=== PATIENT | male | born 1965 | race American Indian/Alaskan Native ===

== ENCOUNTER 2020-03-11 08:56 | Emergency (ER) | payer OTHER ==
[~2020-03-11] VITALS: Ht 165.1 cm; Wt 88.0 kg
[2020-03-11 10:00] LABS: BASOPHILS # (AUTO) 0.1 X10'3 (0-0.2); BASOPHILS % (AUTO) 1.1 % (0-1); EOSINOPHILS # (AUTO) 0.3 X10'3 (0-0.9); EOSINOPHILS % (AUTO) 3.8 % (0-6); HEMATOCRIT 47.8 % (42.0-52.0); HEMOGLOBIN 16.1 g/dl (14.0-17.9); LYMPHOCYTES # (AUTO) 2.5 X10'3 (1.1-4.8); LYMPHOCYTES % (AUTO) 37.5 % (21-51); MEAN CORPUSCULAR HGB CONC 33.6 g/dL (33.0-36.5); MEAN CORPUSCULAR VOLUME 89.1 FL (78-98); MEAN PLATELET VOLUME 7.8 FL (7.4-10.4); MONOCYTES # (AUTO) 0.4 X10'3 (0-0.9); NEUTROPHILS # (AUTO) 3.5 X10'3 (1.8-7.7); NEUTROPHILS % (AUTO) 51.6 % (42-75); PLATELET COUNT 308 X10'3 (140-440); RED BLOOD COUNT 5.37 X10'6 (4.70-6.10); RED CELL DISTRIBUTION WIDTH 13.6 % (11.5-14.5); WHITE BLOOD COUNT 6.7 X10'3 (4.5-11.0)
[2020-03-11 10:08] LABS: ALANINE AMINOTRANSFERASE 43 U/L (12-78); ALBUMIN 4.2 G/DL (3.4-5.0); ALKALINE PHOSPHATASE 65 IU/L (46-116); ANION GAP 8 (8-16); ASPARTATE AMINO TRANSFERASE 23 U/L (10-37); BILIRUBIN,TOTAL 0.4 MG/DL (0.1-1.0); BLOOD UREA NITROGEN 16 MG/DL (7-18); BUN/CREATININE RATIO 15.1 (5.4-32.0); CALCIUM 9.5 MG/DL (8.5-10.1); CHLORIDE 103 MMOL/L (99-107); CREATININE 1.06 MG/DL (0.60-1.10); GLUCOSE 151 MG/DL (70-104); POTASSIUM 4.1 MMOL/L (3.5-5.1); SODIUM 140 MMOL/L (135-145); TOTAL PROTEIN 8.3 G/DL (6.4-8.2); eGFR 72 ML/MIN
--- NOTE | 2020-03-11 11:17 | NUR ---
PT UP OUT OF BED AND AMBULATED TO THE BATHROOM WITH A STEADY GAIT. PT REPORTS "NO HEST PAIN AT THIS TIME".
[2020-03-11 13:19] VITALS: BP 131/81
== END 2020-03-11 13:33 | disposition home or self-care (01) ==
LOC: ER 08:57
DX: R07.89 Other chest pain (principal); R10.13 Epigastric pain; E78.00 Pure hypercholesterolemia, unspecified; G47.30 Sleep apnea, unspecified
CPT/HCPCS: 36415; 71045; 80053; 83880; 84484; 85025; 93005; 99285

== ENCOUNTER 2020-08-22 10:58 | Day surgery (SDC) | payer OTHER ==
[2020-08-22] VITALS (11 sets, daily range): BP systolic 109–152; BP diastolic 59–97
[~2020-08-22] VITALS: Ht 165.1 cm; Wt 88.8 kg
[2020-08-22] MEDS ORDERED: LORazepam 0.5 MG tablet PO PRN (11:20)
[2020-08-22] MEDS ORDERED: normal saline 1,000 ML IV SCH (11:20)
[2020-08-22] MEDS ORDERED: diphenhydrAMINE 25mg capsule PO PRN (11:20)
[2020-08-22 11:55] LABS: ANION GAP 12 (8-16); BLOOD UREA NITROGEN 14 MG/DL (7-18); BUN/CREATININE RATIO 15.9 (5.4-32.0); CALCIUM 8.9 MG/DL (8.5-10.1); CHLORIDE 104 MMOL/L (99-107); CREATININE 0.88 MG/DL (0.60-1.10); GLUCOSE 91 MG/DL (70-104); SODIUM 140 MMOL/L (135-145); TOTAL CARBON DIOXIDE 24.3 MMOL/L (24-32); eGFR 89 ML/MIN
[2020-08-22 11:57] LABS: BASOPHILS # (AUTO) 0.1 X10'3 (0-0.2); BASOPHILS % (AUTO) 1.5 % (0-1); EOSINOPHILS # (AUTO) 0.2 X10'3 (0-0.9); EOSINOPHILS % (AUTO) 2.8 % (0-6); HEMATOCRIT 43.2 % (42.0-52.0); HEMOGLOBIN 14.5 g/dl (14.0-17.9); LYMPHOCYTES % (AUTO) 35.9 % (21-51); MEAN CORPUSCULAR HEMOGLOBIN 30.1 PG (27.0-31.0); MEAN CORPUSCULAR HGB CONC 33.5 g/dL (33.0-36.5); MEAN CORPUSCULAR VOLUME 89.9 FL (78-98); MEAN PLATELET VOLUME 7.6 FL (7.4-10.4); MONOCYTES # (AUTO) 0.7 X10'3 (0-0.9); MONOCYTES % (AUTO) 8.5 % (2-12); NEUTROPHILS # (AUTO) 4.3 X10'3 (1.8-7.7); NEUTROPHILS % (AUTO) 51.3 % (42-75); PLATELET COUNT 288 X10'3 (140-440); RED CELL DISTRIBUTION WIDTH 14.2 % (11.5-14.5); WHITE BLOOD COUNT 8.4 X10'3 (4.5-11.0)
[2020-08-22 11:59] LABS: PARTIAL THROMBOPLASTIN TIME 29 SECONDS (22-32)
[2020-08-22] MEDS ORDERED: nitroGLYCERIN-Tridil 50MG/D5W 250 ML IV ONE (12:01)
[2020-08-22] MEDS ORDERED: heparin 1,000unit/ml 10ml vial 10 ML ONE (12:02)
[2020-08-22] MEDS ORDERED: fentaNYL/PF 50MCG/1 ML 2ML syringe ONE (12:02)
[2020-08-22] MEDS ORDERED: LIDOcaine 1% (10mg/ml)w/preservative injection 20ml MDV ONE (12:02)
[2020-08-22] MEDS ORDERED: midazolam 1 mg/ML 2ml injection ONE ×2 (12:02→13:23)
[2020-08-22] MEDS ORDERED: iohexol 350MG/ML 100ml bottle IV ONE ×4 (12:02→13:55)
[2020-08-22] MEDS ORDERED: verapamil 2.5 mg/ml inj IV ONE ×2 (12:02→13:49)
[2020-08-22] MEDS ORDERED: METO-539 PO (12:03)
[2020-08-22] MEDS ORDERED: ATOR40TA71 PO (12:03)
[2020-08-22] MEDS ORDERED: ASPI-1265 PO (12:03)
[2020-08-22] MEDS ORDERED: [UNRECOGNIZED DRUG - OTHER] PO (12:03)
[2020-08-22] MEDS ORDERED: nitroGLYCERIN 0.4mg SUBLingual tab SL ONE (13:50)
[2020-08-22] MEDS ORDERED: ticagrelor 90mg tablet ONE (14:02)
[2020-08-22] MEDS ORDERED: proCHLORperazine 10 MG/2 ml inj IV PRN (14:40)
[2020-08-22] MEDS ORDERED: HYDROcodone/acetaminophen 10/325mg tab PO PRN (14:40)
[2020-08-22] MEDS ORDERED: ondansetron/PF 4mg/2ml inj IV PRN (14:40)
[2020-08-22] MEDS ORDERED: OXAZEpam 15mg capsule PO PRN (14:40)
[2020-08-22] MEDS ORDERED: HYDROcodone/acetaminophen 5mg/325mg tablet PO PRN (14:40)
[2020-08-22] MEDS ORDERED: nitroGLYCERIN 0.4mg SUBLingual tab SL PRN (14:40)
[2020-08-22] MEDS ORDERED: morphine 2 MG/ML inj. syringe IV PRN (15:05)
[2020-08-22] MEDS ORDERED: morphine 4 MG/ML inj SYRINge IV PRN (15:05)
[2020-08-22] MEDS ORDERED: ticagrelor 90mg tablet PO SCH (20:00)
[2020-08-23] MEDS ORDERED: aspirin 81mg tablet.DR PO SCH (08:00)
== END 2020-08-22 18:30 | disposition home or self-care (01) ==
LOC: SSTAY O 10:58
PROVIDERS: ATTEND Internal Medicine Interventional Cardiology
DX: R94.39 Abnormal result of other cardiovascular function study (principal); R07.9 Chest pain, unspecified; I25.10 Atherosclerotic heart disease of native coronary artery without angina pectoris; G47.33 Obstructive sleep apnea (adult) (pediatric); I10 Essential (primary) hypertension; I44.7 Left bundle-branch block, unspecified; I42.0 Dilated cardiomyopathy; E78.5 Hyperlipidemia, unspecified; E05.00 Thyrotoxicosis with diffuse goiter without thyrotoxic crisis or storm; Z95.810 Presence of automatic (implantable) cardiac defibrillator; Z79.82 Long term (current) use of aspirin; Z79.899 Other long term (current) drug therapy
CPT/HCPCS: 36415; 80048; 85025; 85610; 85730; 93005; 93458; 99152; 99153; A6258; C1725; C1751; C1760; C1769; C1874; C1887; C1894; C9600; J1644; J2001; J2250; J2270; J2405; J3010; J7030; Q9967; A4620; A5120; J3490

== ENCOUNTER 2021-02-19 10:13 | Inpatient (IN) | payer OTHER ==
[2021-02-07 10:47] LABS: BASOPHILS # (AUTO) 0.1 X10'3 (0-0.2); BASOPHILS % (AUTO) 1.8 % (0-1); EOSINOPHILS # (AUTO) 0.5 X10'3 (0-0.9); EOSINOPHILS % (AUTO) 6.6 % (0-6); HEMATOCRIT 46.8 % (42.0-52.0); HEMOGLOBIN 15.8 g/dl (14.0-17.9); LYMPHOCYTES # (AUTO) 2.7 X10'3 (1.1-4.8); LYMPHOCYTES % (AUTO) 34.8 % (21-51); MEAN CORPUSCULAR HEMOGLOBIN 30.1 PG (27.0-31.0); MEAN CORPUSCULAR HGB CONC 33.6 g/dL (33.0-36.5); MEAN CORPUSCULAR VOLUME 89.4 FL (78-98); MEAN PLATELET VOLUME 7.7 FL (7.4-10.4); MONOCYTES # (AUTO) 0.6 X10'3 (0-0.9); MONOCYTES % (AUTO) 7.8 % (2-12); NEUTROPHILS # (AUTO) 3.8 X10'3 (1.8-7.7); PLATELET COUNT 317 X10'3 (140-440); RED BLOOD COUNT 5.24 X10'6 (4.70-6.10); RED CELL DISTRIBUTION WIDTH 13.9 % (11.5-14.5); WHITE BLOOD COUNT 7.7 X10'3 (4.5-11.0)
[2021-02-07 10:56] LABS: PARTIAL THROMBOPLASTIN TIME 28 SECONDS (22-32)
[2021-02-07 11:07] LABS: ALBUMIN 4.2 G/DL (3.4-5.0); ANION GAP 9 (8-16); BLOOD UREA NITROGEN 18 MG/DL (7-18); BUN/CREATININE RATIO 15.7 (5.4-32.0); CALCIUM 9.3 MG/DL (8.5-10.1); CHLORIDE 105 MMOL/L (99-107); CREATININE 1.15 MG/DL (0.60-1.10); GLUCOSE 98 MG/DL (70-104); POTASSIUM 4.2 MMOL/L (3.5-5.1); SODIUM 141 MMOL/L (135-145); TOTAL CARBON DIOXIDE 27.2 MMOL/L (24-32); eGFR 66 ML/MIN
[2021-02-19] VITALS (10 sets, daily range): BP systolic 78–133; BP diastolic 45–78
[~2021-02-19] VITALS: Ht 165.1 cm; Wt 90.3 kg
[~2021-02-19 10:13] MED LIST: ASPI-1265 PO; ATOR40TA71 PO; METO-539 PO; [UNRECOGNIZED DRUG - OTHER] PO
[2021-02-19] MEDS ORDERED: diphenhydrAMINE 25mg capsule PO PRN (14:05)
[2021-02-19] MEDS ORDERED: LORazepam 0.5 MG tablet PO PRN (14:05)
[2021-02-19 14:20] LABS: BASOPHILS # (AUTO) 0.1 X10'3 (0-0.2); BASOPHILS % (AUTO) 1.5 % (0-1); EOSINOPHILS # (AUTO) 0.4 X10'3 (0-0.9); EOSINOPHILS % (AUTO) 4.5 % (0-6); HEMATOCRIT 44.4 % (42.0-52.0); LYMPHOCYTES # (AUTO) 2.8 X10'3 (1.1-4.8); LYMPHOCYTES % (AUTO) 31.9 % (21-51); MEAN CORPUSCULAR HEMOGLOBIN 30.2 PG (27.0-31.0); MEAN CORPUSCULAR HGB CONC 33.8 g/dL (33.0-36.5); MEAN CORPUSCULAR VOLUME 89.6 FL (78-98); MEAN PLATELET VOLUME 7.9 FL (7.4-10.4); MONOCYTES # (AUTO) 0.7 X10'3 (0-0.9); MONOCYTES % (AUTO) 8.5 % (2-12); NEUTROPHILS # (AUTO) 4.7 X10'3 (1.8-7.7); NEUTROPHILS % (AUTO) 53.6 % (42-75); PLATELET COUNT 285 X10'3 (140-440); RED BLOOD COUNT 4.96 X10'6 (4.70-6.10); RED CELL DISTRIBUTION WIDTH 13.9 % (11.5-14.5); WHITE BLOOD COUNT 8.8 X10'3 (4.5-11.0)
[2021-02-19 14:32] LABS: ALBUMIN 3.9 G/DL (3.4-5.0); ANION GAP 12 (8-16); BLOOD UREA NITROGEN 14 MG/DL (7-18); BUN/CREATININE RATIO 13.2 (5.4-32.0); CALCIUM 8.6 MG/DL (8.5-10.1); CHLORIDE 106 MMOL/L (99-107); CREATININE 1.06 MG/DL (0.60-1.10); GLUCOSE 134 MG/DL (70-104); POTASSIUM 3.6 MMOL/L (3.5-5.1); SODIUM 140 MMOL/L (135-145); TOTAL CARBON DIOXIDE 21.8 MMOL/L (24-32); eGFR 72 ML/MIN
[2021-02-19 14:35] LABS: PARTIAL THROMBOPLASTIN TIME 26 SECONDS (22-32)
[2021-02-19] MEDS ORDERED: SPIR25TA5 PO (14:53)
[2021-02-19] MEDS ORDERED: SACU1TAB PO (14:53)
[2021-02-19] MEDS ORDERED: TICA90TA2 PO (14:53)
[2021-02-19] MEDS: normal saline 1,000 ML IV SCH (14:58)
[2021-02-19] MEDS ORDERED: CHOL10006 PO (15:01)
[2021-02-19] MEDS ORDERED: LIDOcaine 1% (10mg/ml)w/preservative injection 20ml MDV ONE (15:59)
[2021-02-19] MEDS ORDERED: heparin 1,000unit/ml 10ml vial 10 ML ONE (15:59)
[2021-02-19] MEDS ORDERED: DOPamine 400mg/D5W 250ml 250 ML IV ONE (15:59)
[2021-02-19] MEDS ORDERED: phenylephrine 10mg/ml inj. ONE (15:59)
[2021-02-19] MEDS ORDERED: iohexol 350MG/ML 100ml bottle IV ONE (16:00)
[2021-02-19] MEDS ORDERED: atropine 0.1mg/ml 10ml syringe ONE (16:00)
[2021-02-19] MEDS ORDERED: iohexol 350 MG/1 ML 200ml bottle ONE (16:10)
[2021-02-19] MEDS ORDERED: clopidogrel 300mg tablet ONE (17:41)
[2021-02-19] MEDS ORDERED: ondansetron/PF 4mg/2ml inj ONE (18:06)
[2021-02-19] MEDS ORDERED: OXAZEpam 15mg capsule PO PRN (18:15)
[2021-02-19] MEDS ORDERED: acetaminophen 325mg tablet PO PRN (18:15)
[2021-02-19] MEDS ORDERED: hydrALAZINE 20mg/ml inj. IV PRN (18:20)
[2021-02-19] MEDS ORDERED: HYDROcodone/acetaminophen 5mg/325mg tablet PO PRN (18:20)
[2021-02-19] MEDS ORDERED: pseudoephedrine 30mg tablet PO PRN (18:20)
[2021-02-19] MEDS ORDERED: HYDROcodone/acetaminophen 10/325mg tab PO PRN (18:20)
[2021-02-19] MEDS: DOPamine 400mg/D5W 250ml 250 ML IV SCH ×3 (18:20→20:45)
[2021-02-19] MEDS ORDERED: atorvastatin 20mg tablet PO SCH (21:00)
[2021-02-19] MEDS: sacubitril/valsartan 24mg-26mg tablet PO SCH (22:30)
[2021-02-20] MEDS: normal saline 1,000 ML IV SCH (00:05)
[2021-02-20 02:00] VITALS: BP 88/44
[2021-02-20] MEDS ORDERED: metoprolol succinate 25mg (24-HOUR) SR. Tablet PO SCH (08:00)
[2021-02-20] MEDS ORDERED: cholecalciferol (vitamin D3) 1,000 unit (25mcg) tablet PO SCH (08:00)
[2021-02-20] MEDS ORDERED: aspirin 81mg tab.chew PO SCH (08:00)
[2021-02-20] MEDS ORDERED: spironolactone 25 MG tablet PO SCH (08:00)
[2021-02-20] MEDS ORDERED: CLOP75TA15 PO (09:46)
[2021-02-20] MEDS: sacubitril/valsartan 24mg-26mg tablet PO SCH (09:53)
[2021-02-20 09:54] VITALS: BP_SYST 102
== END 2021-02-20 13:30 | disposition home or self-care (01) | DRG 982 ==
LOC: SSTAY O 13:48 → EDSTATUS 17:00 → PCU 3S 17:55 → SSTAY O 22:47 → PCU 3S 22:47 → SSTAY O 02-20 13:40
PROVIDERS: ADMIT Internal Medicine Interventional Cardiology; ATTEND Internal Medicine Interventional Cardiology
PROC: 03HK3DZ Insertion of Intraluminal Device into Right Internal Carotid Artery, Percutaneous Approach (ICD-10-PCS; principal; 2021-02-19)
DX: I65.21 Occlusion and stenosis of right carotid artery (principal); I42.9 Cardiomyopathy, unspecified; Z79.899 Other long term (current) drug therapy; I10 Essential (primary) hypertension; E78.5 Hyperlipidemia, unspecified; E66.9 Obesity, unspecified; Z68.33 Body mass index [BMI] 33.0-33.9, adult
CPT/HCPCS: 36415; 37215; 80048; 85025; 85610; 85730; 87081; 93005; A4620; A6258; C1725; C1760; C1769; C1876; C1884; C1887; C1894; G0378; J0461; J1265; J1644; J2001; J2370; J2405; J7030; Q0163; Q9967